=== PATIENT | male | born 1985 | race Caucasian/White ===

== ENCOUNTER 2020-08-06 13:26 | Outpatient (CLI) | payer OTHER | END 2020-08-06 13:27 | disposition home or self-care (01) | LOC: COV 13:26 | PROVIDERS: ATTEND Family Medicine | DX: R06.02 Shortness of breath (principal); R07.0 Pain in throat; R09.81 Nasal congestion; J34.89 Other specified disorders of nose and nasal sinuses; Z20.828 Contact with and (suspected) exposure to other viral communicable diseases ==